=== PATIENT | female | born 1960 | race American Indian/Alaskan Native ===

== ENCOUNTER 2017-04-28 15:41 | Outpatient (CLI) | payer OTHER ==
--- NOTE | 2017-04-28 16:23 | XRay Report ---
CHEST TWO VIEWS: 04/28/17 15:41:00 CLINICAL: Positive PPD. COMPARISON: None FINDINGS: The lungs are normally expanded and clear. No airspace disease and no pleural effusion. Normal heart and pulmonary vessels. Aortic ectasia and tortuosity. Scoliosis and degenerative changes in the spine. IMPRESSION: No signs of acute or chronic TB.Hypertensive changes in aorta.
== END 2017-04-28 15:42 | disposition home or self-care (01) ==
LOC: SPVIMAG 15:41
DX: R76.11 Nonspecific reaction to tuberculin skin test without active tuberculosis (principal); I77.819 Aortic ectasia, unspecified site; M47.899 Other spondylosis, site unspecified; M41.80 Other forms of scoliosis, site unspecified
CPT/HCPCS: 71020